=== PATIENT | male | born 2000 | race Caucasian/White ===

== ENCOUNTER 2020-01-25 20:31 | Emergency (ER) | payer BC ==
[~2020-01-25] VITALS: Ht 188 cm; Wt 74.7 kg
[2020-01-25 20:41] VITALS: BP 120/73
[2020-01-25] MEDS ORDERED: ACETAMINOPHEN 500 MG TABLET ONE (20:58)
[2020-01-25] MEDS ORDERED: ACETAMINOPHEN 500 MG TABLET PO ONE (21:00)
--- NOTE | 2020-01-25 21:00 | NUR ---
THIS IS A 19Y M THAT COMES IN AFTER SLIPPING AND FALLING WHILE DANCING TONIGHT. PT REPORTS HAVING SOME DRINKS TONIGHT BUT "NOT INTOXICATED" PT A/O4 AMBULATORY SPEAKING IN CLEAR FULL SENTENCES. PT REMOVED MONITORING BUT HAS NO NEEDS AT THIS TIME.
--- NOTE | 2020-01-25 21:02 | NUR ---
PT MEDICATED PER MAR
--- NOTE | 2020-01-25 21:19 | NUR ---
PT BACK FROM CT AT THIS TIME
--- NOTE | 2020-01-25 21:47 | NUR ---
ALL RESULTS BACK CHART UP FOR RECHECK
== END 2020-01-25 22:07 | disposition home or self-care (01) ==
LOC: ED 21:42
DX: S00.83XA Contusion of other part of head, initial encounter (principal); R41.3 Other amnesia; R51 Headache; F10.129 Alcohol abuse with intoxication, unspecified; W01.0XXA Fall on same level from slipping, tripping and stumbling without subsequent striking against object, initial encounter; Y93.89 Activity, other specified; Y92.098 Other place in other non-institutional residence as the place of occurrence of the external cause; Y99.8 Other external cause status; Y90.0 Blood alcohol level of less than 20 mg/100 ml
CPT/HCPCS: 70450; 70486; 99285